=== PATIENT | female | born 1990 | race Hispanic/Latino ===

== ENCOUNTER 2023-01-29 16:25 | Emergency (ER) | payer OTHER, SELFPAY ==
--- OUTSIDE RECORDS SUMMARY | 2023-01-29 16:27 | XMS REPORT | Continuity of Care Document ---
:1990 Author Organization [facility] t Address [address] [place] [address] Care Team Providers Name Role Phone Unavailable Unavailable Unavailable Problems This patient has no known problems. Allergies, Adverse Reactions, Alerts This patient has no known allergies or adverse reactions. Medications This patient has no known medications. Procedures This patient has no known procedures. Results This patient has no known results.
[2023-01-29 17:11] LABS: Hematocrit 42.9 % (36.0-45.0); Lymphocytes % 37.8 % (15.3-44.8); MCV 93.5 fL (80-100); MPV 7.3 fL (7.6-11.3); RBC Red Blood Cell Count 4.59 M/uL (3.86-4.86)
[2023-01-29] MEDS ORDERED: ALPRAZOLAM 0.5 MG TABLET ONE (17:15)
[2023-01-29 17:32] LABS: Specific Gravity > 1.030 (1.005-1.030)
[2023-01-29 17:41] LABS: Albumin 4.3 g/dL (3.4-5.0); Bilirubin Total 0.5 mg/dL (0.2-1.0); Potassium 3.3 mEq/L (3.5-5.1); Protein, Total 8.5 g/dL (6.4-8.2)
--- NOTE | 2023-01-29 18:07 | ER ---
Nurse's Notes [facility] Name: Lay Silva Age: 32 yrs Sex: Female : 1990 Arrival Date: 01/29/2023 Time: 16:25 Bed 19 Private MD: Diagnosis: Panic disorder [episodic paroxysmal anxiety] without agoraphobia Presentation: 01/29 16:32 Chief complaint: Patient states: "I was standing at the store then I felt really hot hb and anxious then like I can't breathe, now my face and lips and arms are tingly and kind of numb.". Coronavirus screen: At this time, the client does not indicate any symptoms associated with coronavirus-19. Ebola Screen: No symptoms or risks identified at this time. Initial Sepsis Screen: Does the patient meet any 2 criteria? No. Patient's initial sepsis screen is negative. Does the patient have a suspected source of infection? No. Patient's initial sepsis screen is negative. Risk Assessment: Do you want to hurt yourself or someone else? Patient reports no desire to harm self or others. Onset of symptoms was January 29, 2023. 16:32 Method Of Arrival: Ambulatory hb 16:32 Acuity: CARLOS 3 hb Triage Assessment: 17:00 General: Appears distressed, uncomfortable, Behavior is anxious. 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 - Social history:: Smoking status: Patient denies any tobacco usage or history of. Screenin:31 [facility] ED Fall Risk Assessment (Adult) History of falling in the last 3 months, db including since admission No falls in past 3 months (0 pts) Confusion or Disorientation No (0 pts) Intoxicated or Sedated No (0 pts) Impaired Gait No (0 pts) Mobility Assist Device Used No (0 pt) Altered Elimination No (0 pt) Score/Fall Risk Level 0 - 2 = Low Risk Oriented to surroundings, Maintained a safe environment. Abuse screen: Denies threats or abuse. Denies injuries from another. Nutritional screening: No deficits noted. Tuberculosis screening: No symptoms or risk factors identified. Assessment: 16:40 Reassessment: Patient appears in no apparent distress at this time. Patient and/or db family updated on plan of care and expected duration. Pain level reassessed. Patient is alert, oriented x 3, equal unlabored respirations, skin warm/dry/pink. General: Appears in no apparent distress. uncomfortable, Behavior is cooperative, anxious. Pain:. 18:29 Reassessment: Patient appears in no apparent distress at this time. Patient and/or db family updated on plan of care and expected duration. Pain level reassessed. Patient is alert, oriented x 3, equal unlabored respirations, skin warm/dry/pink. General: Appears in no apparent distress. comfortable. Pain: Denies pain. Neuro: Level of Consciousness is awake, alert, obeys commands, Oriented to person, place, time, situation. Respiratory: Airway is patent Respiratory effort is even, unlabored, Respiratory pattern is regular, symmetrical. Vital Signs: 16:30 BP 116 / 68; Pulse 87; Resp 18; Pulse Ox 99% ; db 16:32 BP 141 / 95; Pulse 95; Resp 20; Temp 98.3; Pulse Ox 99% on R/A; Weight 88.45 kg; Height hb 5 ft. 5 in. ; Pain 0/10; 17:45 BP 124 / 87; Pulse 73; Resp 18; Pulse Ox 97% on R/A; db 16:32 Body Mass Index 32.45 (88.45 kg, 165.1 cm) hb 16:32 Pain Scale: Adult hb ED Course: 16:25 Patient arrived in ED. rg4 16:28 Brandon Morillo MD is Attending Physician. bs3 16:29 Maria Guadalupe Ly, GINA is Primary Nurse. db 16:34 Triage completed. hb 16:35 Arm band placed on. hb 18:30 No provider procedures requiring assistance completed. IV discontinued, intact, db bleeding controlled, No redness/swelling at site. 18:31 Patient has correct armband on for positive identification. Bed in low position. Call db light in reach. Side rails up X 1. Pulse ox on. NIBP on. Administered Medications: 17:11 Drug: ALPRAZolam PO Tablet 0.5 mg Route: PO; db 17:53 Follow up: Response: No adverse reaction db Medication: 18:31 VIS not applicable for this client. db Outcome: 18:07 Discharge ordered by . bs3 18:30 Discharged to home ambulatory, with family. db 18:30 Condition: stable 18:30 Discharge instructions given to patient, Instructed on discharge instructions, follow up and referral plans. 18:32 Patient left the ED. db Signatures: Leonarda Caro RN RN Marylou Doherty rg4 Brandon Morillo MD MD bs3 Maria Guadalupe Ly RN RN db Corrections: (The following items were deleted from the chart) 18:29 16:40 Reassessment: Patient appears in no apparent distress at this time. Patient db and/or family updated on plan of care and expected duration. Pain level reassessed. Patient is alert, oriented x 3, equal unlabored respirations, skin warm/dry/pink. db 18:29 16:40 General: Appears in no apparent distress. comfortable, Behavior is calm, db cooperative, db
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
[2023-01-29 18:55] VITALS: TEMP 98.3
[2023-01-29 18:56] VITALS: BP 124/87; O2SAT 97
--- NOTE | 2023-02-01 10:19 | EKG ---
Test Date: 2023-01-29 Test Time: 17:46:28 Set Rider: MERVIN MEASUREMENT RESULTS: Intervals: Rate: 60 OK: 134 QRSD: 82 QT: 384 QTc: 384 Hardwick: P: 36 OK: 134 QRS: 27 T: 29 INTERPRETIVE STATEMENTS: Normal sinus rhythm Normal ECG No previous ECG available for comparison Electronically Signed On 02-01-23 10:14:15 CDT by Fitz Oliver
== END 2023-01-29 18:32 | disposition home or self-care (01) ==
LOC: ER 16:25
DX: F41.0 Panic disorder [episodic paroxysmal anxiety] (principal)
CPT/HCPCS: 36415; 80053; 81025; 85025; 93005; 99283